=== PATIENT | female | born 1985 | race Caucasian/White ===

== ENCOUNTER 2018-06-19 18:31 | Emergency (ER) | payer MEDICAID, MEDICARE ==
[2018-06-19 18:45] VITALS: BP 135/96
--- NOTE | 2018-06-19 19:45 | UC ---
Ear Complaint HPI - History of Current Complaint Chief Complaint: UCGeneralIllness Stated Complaint: EYE COMPLAINT HEADACHES Time Seen by Provider: 06/19/18 19:21 Hx Obtained From: Patient Hx Last Menstrual Period: [id number] Onset/Duration: Gradual Onset, Lasting Weeks - 2 week, Worse Since - last 2 days Severity Initially: Moderate Severity Currently: Mild Pain Intensity: 3 Pain Scale Used: 0-10 Numeric Aggravating Factors: Other - touch Alleviating Factors: OTC Meds Associated Signs/Symptoms: Positive: Swelling @ - Allergies/Home Medications Allergies/Adverse Reactions: Allergies Allergy/AdvReac Type Severity Reaction Status Date / Time No Known Allergies Allergy Verified 06/19/18 18:46 Home Medications: Home Medications Ibuprofen TAB* [Motrin TAB* 600 MG] 600 mg PO Q8H PRN 06/19/18 [History Confirmed 06/19/18] PMH/Surg Hx/FS Hx/Imm Hx Previously Healthy: Yes Endocrine History: Hypothyroidism - Hashimotos Thyroditis Other Neurological History: Sacroilitis - Surgical History Surgical History: Yes Surgery Procedure, Year, and Place: cone biopsy, cholecystectomy - Family History Family History: Pituitary tumor, Renal cancer, hyprothyrodism - Social History Occupation: Employed Full-time Lives: With Family Alcohol Use: Rare Substance Use Type: Marijuana Substance Use Comment - Amount & Last Used: rarely Smoking Status (MU): Never Smoked Tobacco Review of Systems Constitutional: Negative Skin: Negative Physical Exam Vital Signs: Initial Vital Signs Temp 98.6 F 06/19/18 18:37 Pulse 90 06/19/18 18:37 Resp 16 06/19/18 18:37 BP 135/96 06/19/18 18:37 Pulse Ox 100 06/19/18 18:37 Ear Complaint Course/Dx - Differential Dx/Diagnosis Differential Diagnosis/HQI/PQRI: Barotrauma, Cerumen Impaction, Otitis Externa, Otitis Media, Perforated TM, Pharyngitis, TMJ Syndrome, Trigeminal Nueralgia Provider Diagnoses: 1- Left otitis media. 2- Nausea Discharge - Discharge Plan Condition: Stable Disposition: HOME Prescriptions: Amoxicillin/Clavulanate TAB* [Augmentin TAB 875*] 875 mg PO BID #14 tab Ondansetron ODT TAB* [Zofran 4 MG Odt TAB*] 4 mg PO Q6H PRN #12 tab.odt PRN Reason: Nausea Patient Education Materials: Ear Infection (ED), Acute Nausea and Vomiting (ED) , Low-Sodium Diet (ED) Referrals: [facility] [place]] - 1 Week Russell Bang MD [Medical Doctor] - 3 Days Additional Instructions: 1- Please take the full course of the antibiotic to avoid resistance. Take yogurt w/ probiotics or Culturelle to protect your GI system 2-Please continue taking PO q6-8hrs prn as instructed after meals to alleviate pain and swelling. Increase fluid intake, eat well, rest and avoid strenuous exercise 3- Take Zofran PO as directed if Nausea continues 4-If symptoms do not improve or worsen please return to ENT DR Snyder for further management on ear infections 5- Please F/u w/ with your PCP for further blood work evaluation and treatment on your Brigid thyroditis. 6-Your BP is elevated today. please decrease salt in your diet, monitor BP and if it continues to be elevated please f/u with your PCP for further management - Billing Disposition and Condition Condition: STABLE Disposition: Home
== END 2018-06-19 20:03 | disposition home or self-care (01) ==
LOC: UCEAST 18:31
DX: H66.92 Otitis media, unspecified, left ear (principal); R11.0 Nausea
CPT/HCPCS: 99212; G0463

== ENCOUNTER 2019-05-01 15:07 | Emergency (ER) | payer MEDICARE, MEDICAID ==
[2019-05-01] MEDS ORDERED: Tetan/Diph/Pertus SYR(Tdap)* 0.5 ML SYR(BOOSTRIX) use SYR IM ONE (15:46)
[2019-05-01] MEDS ORDERED: Amoxicillin/Clavulanate TAB* 875 MG PO ONE (15:50)
--- NOTE | 2019-05-01 16:02 | ED ---
Bite Injury/Animal - HPI Summary HPI Summary: Patient is a 34-year-old female who presents emergency department for Bite to right upper extremity that occurred today. Patient states her cat was in a fight with a raccoon and patient picked Up and That her right hand. She also sustained scratches to right mid arm. Patient does not believe she touch the raccoon but is on clear if scratches on arm are from cat or raccoon. Patient notes she is unsure if cat is up-to-date on its vaccinations. She states his last that about 3 years ago. She is unaware of her last tetanus immunization. Symptoms are moderate in severity. Moving right hand makes symptoms worse. Rest makes symptoms better. - History of Current Complaint Chief Complaint: EDAnimalBite Stated Complaint: CAT BITE INJURY PER PT Time Seen by Provider: 05/01/19 15:25 Hx Obtained From: Patient Hx Last Menstrual Period: [id number] Pain Intensity: 7 - Allergies/Home Medications Allergies/Adverse Reactions: Allergies Allergy/AdvReac Type Severity Reaction Status Date / Time No Known Allergies Allergy Verified 03/27/19 20:10 Home Medications: Home Medications ARIPiprazole TAB* [Abilify 2 MG TAB*] 2 mg PO DAILY 05/01/19 [History Confirmed 05/01/19] PMH/Surg Hx/FS Hx/Imm Hx Previously Healthy: Yes Endocrine/Hematology History: Denies: Hx Anticoagulant Therapy Cardiovascular History: Denies: Hx Myocardial Infarction - Surgical History Surgery Procedure, Year, and Place: cone biopsy, cholecystectomy Infectious Disease History: Yes Infectious Disease History: Denies: Traveled Outside the [place] in Last 30 Days - Family History Known Family History: Positive: Non-Contributory Family History: Pituitary tumor, Renal cancer, hyprothyrodism - Social History Occupation: Employed Full-time Lives: With Family Alcohol Use: Rare Substance Use Type: Reports: None Substance Use Comment - Amount & Last Used: rarely Smoking Status (MU): Never Smoked Tobacco Review of Systems Positive: Other - puncture wounds and scratches to right hand and arm. Neurological: Negative Negative: Weakness, Paresthesia, Numbness All Other Systems Reviewed And Are Negative: Yes Physical Exam Triage Information Reviewed: Yes Vital Signs On Initial Exam: Initial Vitals Temp Pulse Resp BP Pulse Ox 99.0 F 99 18 137/92 99 05/01/19 15:12 05/01/19 15:12 05/01/19 15:12 05/01/19 15:12 05/01/19 15:12 Vital Signs Reviewed: Yes Appearance: Positive: Well-Appearing - Pt. sitting on bed in NAD. Skin: Positive: Warm, Dry Head/Face: Positive: Normal Head/Face Inspection Eyes: Positive: Normal, EOMI, OBEY Neck: Positive: Supple Musculoskeletal: Positive: Other - 4 small puncture wounds noted to right hand on the dorsal surface. Mild edema. No erythema or drainage. Able to flex and extend digits with pain. A few superficial abrasions to right mid arm on palmar aspect. Neurological: Positive: Normal, CN Intact II-III Diagnostics - Vital Signs Vital Signs Temp Pulse Resp BP Pulse Ox 05/01/19 15:12 99.0 F 99 18 137/92 99 - Laboratory Lab Statement: Any lab studies that have been ordered have been reviewed, and results considered in the medical decision making process. Bite Injury Course/Dx - Course Course Of Treatment: Patient presenting for bite and potential raccoon scratches. Tetanus was updated. I contacted [facility] department and spoke with Leila. Leila spoke with patient directly. Leila is concerned that scratches on patient's arm for potentially from raccoon and that there is potentially raccoon saliva on When it bit her. She recommends rabies prophylaxis. Ataxia and immunoglobulin was administered. Patient started on Augmentin. Patient will follow up with health department for vaccines on days 3, 7 and 14. Patient to keep wounds clean and dry. Ice and elevate intermittently. Patient was prescribed Ultram should continue for pain as well as ibuprofen. To follow-up with PCP for wound check on Saturday. We 'll return to the ER over the weekend for increased pain, swelling, difficulty moving fingers, fever or if concerned. Patient understands and agrees with plan. - Diagnoses Differential Diagnosis/HQI/PQRI: Positive: Cellulitis, Crush Injury, Fracture, Superficial Infection, Deep Space Infection, Tenosynovitis Provider Diagnosis: Cat bite, Need for post exposure prophylaxis for rabies Discharge - Sign-Out/Discharge Documenting (check all that apply): Patient Departure Patient Received Moderate/Deep Sedation with Procedure: No - Discharge Plan Condition: Good Disposition: HOME Prescriptions: Amoxicillin/Clavulanate TAB* [Augmentin TAB 875*] 875 mg PO BID #20 tab Patient Education Materials: Animal Bite (ED), Rabies Vaccine (ED) Referrals: [facility] Dept [Outside] Leeann Morrison MD [Primary Care Provider] - Additional Instructions: Follow up with the [facility] Department for rabies vaccine injections on days 05/04/18, 05/08/19, and 05/15/19 Keep wound clean and dry Take antibiotic as directed Can continue pain medication as directed Return to ER for increased pain, redness, fever, difficulty moving fingers and wrist - Billing Disposition and Condition Condition: GOOD Disposition: Home
[2019-05-01] MEDS ORDERED: HYDROcodone/ACETAMIN 5-325 MG* 1 TAB PO ONE (16:09)
[2019-05-01] MEDS ORDERED: Rabies Immune Globulin/PF 1ML* 1 ML/300 UNITS VIAL IM ONE (16:11)
[2019-05-01] MEDS ORDERED: Rabies VIRUS VACCINE (Imovax)* 2.5 UNIT/ML 1 ML IM ONE (16:11)
[2019-05-01 18:17] VITALS: BP 112/62
== END 2019-05-01 18:15 | disposition home or self-care (01) ==
LOC: ED 15:07
DX: S61.431A Puncture wound without foreign body of right hand, initial encounter (principal); S50.811A Abrasion of right forearm, initial encounter; W64.XXXA Exposure to other animate mechanical forces, initial encounter; Y92.9 Unspecified place or not applicable; Z20.3 Contact with and (suspected) exposure to rabies; Z23 Encounter for immunization
CPT/HCPCS: 90375; 90471; 90472; 90715; 96372; 99282; A9270-GY

== ENCOUNTER 2020-01-10 13:26 | Emergency (ER) | payer MEDICARE, MEDICAID ==
--- OUTSIDE RECORDS SUMMARY | 2020-01-10 13:53 | XMS REPORT | Continuity of Care Document ---
:1985 External Reference #:[id number] Author Name Leeann Morrison MD (transmitted by agent of provider Jolene Srivastava) Address [address], [place] [address] Care Team Providers Name Role Phone Leeann Morrison MD - Internal Medicine Care Team Information Water/Wastewater Engineer [phone] Matt Costello MD - Hospitalist Care Team Information Water/Wastewater Engineer [phone] Problems Active Problems Provider Date Bipolar disorder Leeann Morrison MD Onset: 09/30/2018 Hypothyroidism Leeann Morrison MD Onset: 09/30/2018 Chronic fatigue syndrome Leeann Morrison MD Onset: 09/30/2018 Sacroiliac joint pain Leeann Morrison MD Onset: 09/30/2018 Cholecystectomy Leeann Morrison MD Onset: 09/30/2018 Social History Type Date Description Comments Sex Unknown ETOH Use Rarely consumes alcohol Tobacco Use Start: Unknown Patient has never smoked Recreational Drug Use Negative For Current Drug User Recreational Drug Use Sporadically uses Marijuana Smoking Status Reviewed: 01/01/20 Patient has never smoked Exercise Type/Frequency Exercises regularly hiking and yoga- 3-5 days per week Allergies, Adverse Reactions, Alerts Description No Known Drug Allergies Medications Active Medications SIG Qnty Indications Ordering Provider Date Tramadol HCL 1 tablet three 90tabs Leeann Morrison MD 11/21/2018 50mg times daily as Tablets needed Viral [place] Formula 60 drops 3x a Unknown day. Abilify 1 by mouth twice Unknown 2mg Tablets daily Medications Administered in Office Medication SIG Qnty Indications Ordering Provider Date Injection Cosyntropin 0.25MG Hiram Smith MD 12/24/2018 Injection Triamcinolone (Kenalog) Josh Dixon MD 04/01/2018 Injection Triamcinolone (Kenalog) Josh Dixon MD 11/18/2017 Injection Immunizations Description No Information Available Vital Signs Date Vital Result Comment 01/01/2020 1:16pm Height 67 inches 5'7" Weight 201.00 lb Heart Rate 88 /min BP Systolic Sitting 116 mmHg BP Diastolic Sitting 77 mmHg Body Temperature 97.2 F O2 % BldC Oximetry 97 % BMI (Body Mass Index) 31.5 kg/m2 08/28/2019 1:11pm Height 67 inches 5'7" Weight 195.00 lb Heart Rate 104 /min BP Systolic Sitting 115 mmHg BP Diastolic Sitting 74 mmHg Body Temperature 97.4 F O2 % BldC Oximetry 96 % BMI (Body Mass Index) 30.5 kg/m2 Results Test Acquired Date Facility Test Result H/L Range Note CBC Auto 12/31/2019 [facility] White Blood 5.3 10^3/uL Normal 3.5-10.[address] [place] [address] [phone] Red Blood Count 4.51 10^6/uL Normal 3.70-4.87 Hemoglobin 13.2 g/dL Normal 12.0-16.0 Hematocrit 38 % Normal 35-47 Mean Corpuscular Volume 84 fL Normal 80-97 Mean Corpuscular Hemoglobin 29 pg Normal 27-31 Mean Corpuscular HGB Conc 35 g/dL Normal 31-36 Red Cell Distribution Width 14 % Normal 10-15 Platelet Count 284 10^3/uL Normal 150-450 Mean Platelet Volume 7.9 fL Normal 7.4-10.4 Abs Neutrophils 3.3 10^3/uL Normal 1.5-7.7 Abs Lymphocytes 1.4 10^3/uL Normal 1.0-4.8 Abs Monocytes 0.4 10^3/uL Normal 0-0.8 Abs Eosinophils 0.1 10^3/uL Normal 0-0.6 Abs Basophils 0.0 10^3/uL Normal 0-0.2 Abs Nucleated RBC 0.0 10^3/uL Granulocyte % 63.4 % Lymphocyte % 27.5 % Monocyte % 7.7 % Eosinophil % 1.1 % Basophil % 0.3 % Nucleated Red Blood Cells % 0.1 Comp Metabolic 12/31/2019 [facility] Sodium 138 mmol/L Normal 135-[address] [place] [address] [phone] Potassium 3.8 mmol/L Normal 3.5-5.0 Chloride 105 mmol/L Normal 101-111 Co2 Carbon Dioxide 26 mmol/L Normal 22-32 Anion Gap 7 mmol/L Normal 2-11 Glucose 98 mg/dL Normal 70-100 Blood Urea Nitrogen 11 mg/dL Normal 6-24 Creatinine 0.64 mg/dL Normal 0.51-0.95 BUN/Creatinine Ratio 17.2 Normal 8-20 Calcium 9.5 mg/dL Normal 8.6-10.3 Total Protein 6.9 g/dL Normal 6.4-8.9 Albumin 4.0 g/dL Normal 3.2-5.2 Globulin 2.9 g/dL Normal 2-4 Albumin/Globulin Ratio 1.4 Normal 1-3 Total Bilirubin 0.30 mg/dL Normal 0.2-1.0 Alkaline Phosphatase 46 U/L Normal 34-104 Alt 19 U/L Normal 7-52 Ast 19 U/L Normal 13-39 Egfr Non- 105.6 >60 Egfr 127.8 >60 1 Laboratory 12/31/2019 [facility] TSH (Thyroid 0.85 Normal 0.34 -5.60 test finding [address] Stim Horm) mcIU/[place] [address] [phone] Laboratory 08/28/2019 [employer] In House Rapid Group Negative test finding A Strep 1 Because ethnic data is not always readily available, this report includes an eGFR for both -Americans and non- Americans. The National Kidney Disease Education Program (NKDEP) does not endorse the use of the MDRD equation for patients that are not between the ages of 18 and 70, are , have extremes of body size, muscle mass, or nutritional status, or are non- or non-. According to the National Kidney Foundation, irrespective of diagnosis, the stage of the disease is based on the level of kidney function: Stage Description GFR(mL/min/1.73 m(2)) 1 Kidney damage with normal or decreased GFR 90 2 Kidney damage with mild decrease in GFR 60-89 3 Moderate decrease in GFR 30-59 4 Severe decrease in GFR 15-29 5 Kidney failure <15 (or dialysis) Procedures Description No Information Available Medical Devices Description No Information Available Encounters Type Date Location Provider Dx Diagnosis Office Visit 08/28/2019 [facility] Internal Leeann Morrison MD J02.9 [facility] G[facility] Chronic pain syndrome Z12.4 Encounter for screening for malignant neoplasm of cervix Assessments Date Code Description Provider 01/01/2020 G89.4 Chronic pain syndrome Leeann Morrison MD 01/01/2020 R53.83 Other fatigue Leeann Morrison MD 08/28/2019 J02.9 Acute pharyngitis, unspecified Leeann Morrison MD 08/28/2019 G89.4 Chronic pain syndrome Leeann Morrison MD 08/28/2019 Z12.4 Encounter for screening for malignant neoplasm of Leeann Morrison MD cervix Plan of Treatment Future Appointment(s):03/01/2020 11:20 am - Leeann Morrison MD at [facility] Leeann Morrison MDG89.4 Chronic pain syndromeReferral: Gregg Garvey DO, Interventional Pain RoclrY64.83 Other fatigue Functional Status Description No Information Available Mental Status Description No Information Available Referrals Refer to Reason for Referral Status Appt Date Gregg Garvey DO Chronic pain ongoing. Tramadol not working Created [address] [place] [id number] [phone]
--- OUTSIDE RECORDS SUMMARY | 2020-01-10 13:53 | XMS REPORT ---
:1985 Author Organization [facility] Care Team Providers Name Role Phone JEREMIAH MADISON Primary Care Physician Unavailable Allergies, Adverse Reactions, Alerts Allergy Code CodeSystem Reaction Severity Criticality Status Start Substance Date nkda Moderate Active Medications Medication Medication Medication Start Stop Route Dose Status Fill Code CodeSystem Date Date Instructions Abilify 181068 RxNorm 2018- oral 2 mg completed for 30 6 08-05 tablet day(s) lithium 877473 RxNorm 2018- oral 300 mg 1 completed 1 capsule carbonate 06-03 08- capsule twice a day twice a for 30 day(s) day aripiprazole 059221 RxNorm 2018- oral 2 mg active for 30 07-10 11-28 tablet day(s) Problems Problem Name Code CodeSystem Alternate Alternate Start End Status Narrative Code CodeSystem Date Date Attention-defi 18576295 SNOMED-CT 2018-11 Active cit 0-09 hyperactivity disorder, combined type Bipolar 58657975 SNOMED-CT Active affective 3-22 disorder, unspecified Bipolar 13636585 SNOMED-CT Active affective 3-22 disorder, unspecified Relevant diagnostic tests/laboratory data Narrative No Information Procedures Procedure Code CodeSystem Target Date of Status Service Device Device Device Name Site Procedure Delivery Code Name UID Location Psychotherap 279125 SNOMED-CT () 2019-04-29 complete Mental y, 45 04 d Health- minutes with [address], [id number] Psychotherap [id number] SNOMED-CT () 2019-05-06 complete Mental y, 45 04 d Health- minutes with [address], [id number] Psychotherap [id number] SNOMED-CT () 2019-05-21 complete Mental y, 45 04 d Health- minutes with [address], [id number] Psychotherap [id number] SNOMED-CT () 2019-06-01 complete Mental y, 45 04 d Health- minutes with [address], [id number] Psychotherap [id number] SNOMED-CT () 2019-02-17 complete Mental y, 45 04 d Health- minutes with [address], [id number] Psychotherap [id number] SNOMED-CT () 2019-02-24 complete Mental y, 45 04 d Health- minutes with [address], [id number] Psychotherap [id number] SNOMED-CT () 2019-09-03 complete Mental y, 45 04 d Health- minutes with [address], [id number] Psychotherap [id number] SNOMED-CT () 2019-09-24 complete Mental y, 45 04 d Health- minutes with [address], [id number] Psychotherap [id number] SNOMED-CT () 2019-11-18 complete Mental y, 45 04 d Health- minutes with [address], [id number] Psychotherap [id number] SNOMED-CT () 2019-03-13 complete Mental y, 45 04 d Health- minutes with [address], [id number] Psychotherap [id number] SNOMED-CT () 2019-04-02 complete Mental y, 45 04 d Health- minutes with [address], [id number] Psychotherap [id number] SNOMED-CT () 2019-04-16 complete Mental y, 45 04 d Health- minutes with [address], [id number] Psychotherap 703201 SNOMED-CT () 2019-06-11 complete Mental y, 45 04 d Health- minutes with [facility] patient [address], [id number] [id number] Psychotherap [id number] SNOMED-CT () 2019-07-29 complete Mental y, 45 04 d Health- minutes with [facility] patient [address], [id number] Psychotherap 415252 SNOMED-CT () 2019-08-19 complete Mental y, 45 04 d Health- minutes with [place] patient [address], [id number] [id number] Office or [id number] SNOMED-CT () 2019-09-24 complete Mental other 7 d Health- outpatient [facility] visit for [address], established [id number] patient, [id number] which requires at least 2 of these 3 roberto components: An expanded problem focused history; An expanded problem focused examination; Medical decision making of low Office or [id number] SNOMED-CT () 2019-08-19 complete Mental other 7 d Health- outpatient [place] visit for [address], established [id number] patient, [phone] which requires at least 2 of these 3 roberto components: An expanded problem focused history; An expanded problem focused examination; Medical decision making of low Office or [id number] SNOMED-CT () 2019-06-26 complete Mental other 6 d Health- outpatient [place] visit for [address], established [id number] patient, [phone] which requires at least 2 of these 3 roberto components: A problem focused history; A problem focused examination; Straightforw marlene medical decision making. Counselin Office or [id number] SNOMED-CT () 2019-06-03 complete Mental other 6 d Health- outpatient [facility] visit for [address], established [id number] patient, [phone] which requires at least 2 of these 3 roberto components: A problem focused history; A problem focused examination; Straightforw marlene medical decision making. Counselin SNOMED-CT () 2019-04-16 complete Mental d Health- [place] [address] [place], [id number] SNOMED-CT () 2019-02-09 complete Mental d Health- [facility] [address] [place], [place], [id number] [phone] Encounters/Encounter Diagnoses Encounter Name Encounter Diagnosis Diagnosis Diagnosis Date of Service Code Code Name CodeSystem Diagnosis Delivery Location Psychotherapy [id number] Bipolar SNOMED-CT 2019-11-18 Behavioral Individual 30 affective Health min disorder, [facility] [address] [place], [place], [id number] Vital Signs No Information Social History Element Description Description Start End Code CodeSystem AdditionalInfo Date Date SexAssignedAtBirth Female F AdministrativeGender 02-02 Hospital Discharge Instructions Reason For Referral Medical Equipment FDA Assessments
--- OUTSIDE RECORDS SUMMARY | 2020-01-10 13:53 | XMS REPORT ---
:1985 Author Organization [facility] Care Team Providers Name Role Phone JEREMIAH MADISON Primary Care Physician Unavailable Allergies, Adverse Reactions, Alerts Allergy Code CodeSystem Reaction Severity Criticality Status Start Substance Date nkda Moderate Active Medications Medication Medication Medication Start Stop Route Dose Status Fill Code CodeSystem Date Date Instructions aripiprazole 432510 RxNorm 2019- oral 2 mg active for 30 8-10 10- tablet day(s) Abilify 367726 RxNorm 2018- oral 2 mg completed for 30 6 08-05 tablet day(s) lithium 888701 RxNorm 2018- oral 300 mg 1 completed 1 capsule carbonate 06-03 08- capsule twice a day twice a for 30 day(s) day Problems Problem Name Code CodeSystem Alternate Alternate Start End Status Narrative Code CodeSystem Date Date Bipolar [id number] SNOMED-CT Active affective 3-22 disorder, unspecified Bipolar [id number] SNOMED-CT Active affective 3-22 disorder, unspecified Attention-defi 25390033 SNOMED-CT 2018-11 Active cit 0-09 hyperactivity disorder, combined type Relevant diagnostic tests/laboratory data Narrative No Information Procedures Procedure Code CodeSystem Target Date of Status Service Device Device Device Name Site Procedure Delivery Code Name UID Location Psychotherap [id number] SNOMED-CT () 2019-04-29 complete Mental y, 45 04 d Health- minutes with [address], [id number] [id number] Psychotherap [id number] SNOMED-CT () 2019-05-06 complete Mental y, 45 04 d Health- minutes with [address], [id number] [id number] Psychotherap [id number] SNOMED-CT () 2019-05-21 complete Mental y, 45 04 d Health- minutes with [address], [id number] [phone] Psychotherap [id number] SNOMED-CT () 2019-06-01 complete Mental y, 45 04 d Health- minutes with [address], [id number] [id number] Psychotherap [id number] SNOMED-CT () 2019-02-17 complete Mental y, 45 04 d Health- minutes with [address], [id number] [id number] Psychotherap [id number] SNOMED-CT () 2019-02-24 complete Mental y, 45 04 d Health- minutes with [address], [id number] [id number] Psychotherap [id number] SNOMED-CT () 2019-09-03 complete Mental y, 45 04 d Health- minutes with [address], [id number] [id number] Psychotherap [id number] SNOMED-CT () 2019-09-24 complete Mental y, 45 04 d Health- minutes with [address], [id number] [id number] Psychotherap [id number] SNOMED-CT () 2019-11-18 complete Mental y, 45 04 d Health- minutes with [address], [id number] [phone] Psychotherap [id number] SNOMED-CT () 2019-12-02 complete Mental y, 45 04 d Health- minutes with [address], [id number] [id number] Psychotherap [id number] SNOMED-CT () 2019-03-13 complete Mental y, 45 04 d Health- minutes with [address], [id number] [id number] Psychotherap [id number] SNOMED-CT () 2019-04-02 complete Mental y, 45 04 d Health- minutes with [address], [id number] [id number] Psychotherap [id number] SNOMED-CT () 2019-04-16 complete Mental y, 45 04 d Health- minutes with [place] patient [address], [id number] [id number] Psychotherap [id number] SNOMED-CT () 2019-06-11 complete Mental y, 45 04 d Health- minutes with [facility] patient [address], [id number] [phone] Psychotherap [id number] SNOMED-CT () 2019-07-29 complete Mental y, 45 04 d Health- minutes with [facility] patient [address], [id number] [phone] Psychotherap [id number] SNOMED-CT () 2019-08-19 complete Mental y, 45 04 d Health- minutes with [facility] patient [address], [id number] [phone] Office or [id number] SNOMED-CT () 2019-09-24 complete Mental other 7 d Health- outpatient [facility] visit for [address], established [id number] patient, [phone] which requires at least 2 of these 3 roberto components: An expanded problem focused history; An expanded problem focused examination; Medical decision making of [place] Office or [id number] SNOMED-CT () 2019-08-19 complete Mental other 7 d Health- outpatient [facility] visit for [address], established [id number] patient, [phone] which requires at least 2 of these 3 roberto components: An expanded problem focused history; An expanded problem focused examination; Medical decision making of low Office or [id number] SNOMED-CT () 2019-06-26 complete Mental other 6 d Health- outpatient [place] visit for [address], established [id number] patient, [phone] which requires at least 2 of these 3 roberto components: A problem focused history; A problem focused examination; Straightforw marlene medical decision making. [place] Office or [id number] SNOMED-CT () 2019-12-02 complete Mental other 6 d Health- outpatient [facility] visit for [address], established [id number] patient, [phone] which requires at least 2 of these 3 roberto components: A problem focused history; A problem focused examination; Straightforw marlene medical decision making. Counsel[place] Office or [id number] SNOMED-CT () 2019-06-03 complete Mental other 6 d Health- outpatient [facility] visit for [address], [facility], of an [facility] established [id number] patient, [phone] which requires at least 2 of these 3 roberto components: A problem focused history; A problem focused examination; Straightforw marlene medical decision making. Miko SNOMED-CT () 2019-04-16 complete Mental d [facility]- [address], [id number] [phone] SNOMED-CT () 2019-02-09 [facility] Mental d [address], [id number] [phone] Encounters/Encounter Diagnoses Encounter Name Encounter Diagnosis Diagnosis Diagnosis Date of Service Code Code Name CodeSystem Diagnosis Delivery Location [facility] - [id number] Bipolar SNOMED-CT 2019-12-02 Behavioral Individual 30 affective Health min disorder, Clinic , , unspecified , Vital Signs No Information Social History Element Description Description Start End Code CodeSystem AdditionalInfo Date Date SexAssignedAtBirth Female F AdministrativeGender 02-02 Hospital Discharge Instructions Reason For Referral Medical Equipment FDA Assessments
--- OUTSIDE RECORDS SUMMARY | 2020-01-10 13:53 | XMS REPORT ---
:1985 Author Organization [facility] Care Team Providers Name Role Phone Jennifer Borjas Primary Care Physician Unavailable Allergies, Adverse Reactions, Alerts Allergy Code CodeSystem Reaction Severity Criticality Status Start Substance Date nkda Moderate Active Medications Medication Medication Medication Start Stop Route Dose Status Fill Code CodeSystem Date Date Instructions lithium [id number] RxNorm 2018- oral 300 mg 1 completed 1 capsule carbonate 06-03- capsule twice a day twice a for 30 day(s) day aripiprazole 043371 RxNorm 2018- oral 2 mg active for 30 8-30 11-28 tablet day(s) Abilify 000063 RxNorm 2018- oral 2 mg completed for 30 6- 08-05 tablet day(s) Problems Problem Name Code CodeSystem Alternate Alternate Start End Status Narrative Code CodeSystem Date Date Bipolar 01937442 SNOMED-CT Active affective 3-22 disorder, unspecified Attention-defi 21554473 SNOMED-CT 2018-11 Active cit 0-09 hyperactivity disorder, combined type Bipolar 33206308 SNOMED-CT Active affective 3-22 disorder, unspecified Relevant diagnostic tests/laboratory data Narrative No Information Procedures Procedure Code CodeSystem Target Date of Status Service Device Device Device Name Site Procedure Delivery Code Name UID Location Psychotherap [id number] SNOMED-CT () 2019-04-29 complete Mental y, 45 04 d Health- minutes with [address], [id number] [id number] Psychotherap [id number] SNOMED-CT () 2019-05-06 complete Mental y, 45 04 d Health- minutes with [address], [id number] [phone] Psychotherap [id number] SNOMED-CT () 2019-05-21 complete Mental y, 45 04 d Health- minutes with [address], [id number] [id number] Psychotherap [id number] SNOMED-CT () 2019-06-01 complete Mental y, 45 04 d Health- minutes with [address], [id number] [phone] Psychotherap [id number] SNOMED-CT () 2019-02-17 complete Mental y, 45 04 d Health- minutes with [address], [id number] [phone] Psychotherap [id number] SNOMED-CT () 2019-02-24 complete Mental y, 45 04 d Health- minutes with [address], [id number] [phone] Psychotherap 077550 SNOMED-CT () 2019-09-03 complete Mental y, 45 04 d Health- minutes with [address], [id number] [phone] Psychotherap [id number] SNOMED-CT () 2019-09-24 complete Mental y, 45 04 d Health- minutes with [address], [id number] [phone] Psychotherap 780792 SNOMED-CT () 2019-03-13 complete Mental y, 45 04 d Health- minutes with [address], [id number] [phone] Psychotherap 751262 SNOMED-CT () 2019-04-02 complete Mental y, 45 04 d Health- minutes with [address], [id number] [id number] Psychotherap [id number] SNOMED-CT () 2019-04-16 complete Mental y, 45 04 d Health- minutes with [address], [id number] [id number] Psychotherap 339348 SNOMED-CT () 2019-06-11 complete Mental y, 45 04 d Health- minutes with [address], [id number] [phone] Psychotherap 639374 SNOMED-CT () 2019-07-29 complete Mental y, 45 04 d Health- minutes with [place] patient [address], [id number] [phone] Psychotherap 017300 SNOMED-CT () 2019-08-19 complete Mental y, 45 04 d Health- minutes with [place] patient [address], [id number] [phone] Office or [id number] SNOMED-CT () 2019-09-24 complete Mental other 7 d Health- outpatient [place] visit for [address], established [id number] patient, [phone] which requires at least 2 of these 3 roberto components: An expanded problem focused history; An expanded problem focused examination; Medical decision making of [facility] Office or [id number] SNOMED-CT () 2019-08-19 complete Mental other 7 d Health- outpatient [place] visit for [address], established [id number] patient, [phone] which requires at least 2 of these 3 roberto components: An expanded problem focused history; An expanded problem focused examination; Medical decision making of [facility] Office or [id number] SNOMED-CT () 2019-06-26 complete Mental other 6 d Health- outpatient [place] visit for [address], established [id number] patient, [phone] which requires at least 2 of these 3 roberto components: A problem focused history; A problem focused examination; Straightforw marlene medical decision making. Counselin Office or [id number] SNOMED-CT () 2019-06-03 complete Mental other 6 d Health- outpatient [place] visit for [address], established [id number] patient, [phone] which requires at least 2 of these 3 roberto components: A problem focused history; A problem focused examination; Straightforw marlene medical decision making. Counselin SNOMED-CT () 2019-04-16 complete Mental d Health- [place], [id number] [phone] SNOMED-CT () 2019-02-09 complete Mental d Health- [place], [id number] [phone] Encounters/Encounter Diagnoses Encounter Name Encounter Diagnosis Diagnosis Diagnosis Date of Service Code Code Name CodeSystem Diagnosis Delivery Location Established [id number] Bipolar SNOMED-CT 2019-09-24 Behavioral patient 15-29 affective Health minutes disorder, Clinic [address] [place], [place], [id number] Vital Signs No Information Social History Element Description Description Start End Code CodeSystem AdditionalInfo Date Date SexAssignedAtBirth Female 0 F AdministrativeGender 02-02 Hospital Discharge Instructions Reason For Referral Medical Equipment FDA Assessments
[2020-01-10 14:38] LABS: ABS Eosinophils 0.1 10^3/ul (0-0.6); ABS Lymphocytes 1.6 10^3/ul (1.0-4.8); ABS Monocytes 0.5 10^3/ul (0-0.8); ABS Neutrophils 4.3 10^3/ul (1.5-7.7); Eosinophil % 1.3 %; Hematocrit 41 % (35-47); Hemoglobin 14.2 g/dL (12.0-16.0); Lymphocyte % 24.4 %; Mean Corpuscular HGB Conc 35 g/dL (31-36); Mean Corpuscular Hemoglobin 29 pg (27-31); Mean Corpuscular Volume 85 fL (80-97); Mean Platelet Volume 7.6 fL (7.4-10.4); Nucleated Red Blood Cells % 0.1; Platelet Count 315 10^3/uL (150-450); Red Blood Count 4.82 10^6 /uL (3.70-4.87); Red Cell Distribution Width 14 % (10-15); White Blood Count 6.4 10^3/uL (3.5-10.8)
[2020-01-10 14:55] LABS: ALT 20 U/L (7-52); AST 19 U/L (13-39); Albumin 4.3 g/dL (3.2-5.2); Albumin/Globulin Ratio 1.2 (1-3); Alkaline Phosphatase 50 U/L (34-104); Anion Gap 7 mmol/L (2-11); BUN/Creatinine Ratio 19.4 (8-20); Blood Urea Nitrogen 12 mg/dL (6-24); CO2 Carbon Dioxide 25 mmol/L (22-32); Calcium 9.6 mg/dL (8.6-10.3); Chloride 105 mmol/L (101-111); EGFR African American 132.5 (>60); EGFR Non-African American 109.5 (>60); Globulin 3.5 g/dL (2-4); Glucose 90 mg/dL (70-100); Potassium 3.9 mmol/L (3.5-5.0); Sodium 137 mmol/L (135-145); Total Protein 7.8 g/dL (6.4-8.9)
[2020-01-10 15:00] LABS: HCG Pregnancy < 0.60 mIU/mL
--- NOTE | 2020-01-10 16:31 | ED ---
HPI Chest Pain - HPI Summary HPI Summary: 34 y/o female presented to [facility] for dull right CP with 10-15 second episodes of sharp pain in the same spot. 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 Episodes have occurred every couple of weeks for 3 months. [place] fatigued today and notes SOB but denies vomiting, leg pain, leg swelling. No hx of cardiac issues or blood clots. Pt notes cardiac hx on father's side. - History of Current Complaint Chief Complaint: EDChestWallPain Time Seen by Provider: 01/10/20 16:16 Hx Obtained From: Patient Hx Last Menstrual Period: [id number] Onset/Duration: Started Weeks Ago, Still Present Timing: Intermittent, Lasting Seconds Current Severity: Moderate Pain Intensity: 4 Pain Scale Used: 0-10 Numeric Chest Pain Location: Right Anterior Character: Dull/Aching, Sharp/Stabbing Aggravating Factor(s): Nothing Alleviating Factor(s): Nothing Associated Signs and Symptoms: Positive: Shortness of Breath, Other: - positive fatigue; negative leg pain. Negative: Vomiting, Edema - Allergy/Home Medications Allergies/Adverse Reactions: Allergies Allergy/AdvReac Type Severity Reaction Status Date / Time No Known Allergies Allergy Verified 01/10/20 13:36 Home Medications: Home Medications Ibuprofen TAB* [Motrin TAB* 600 MG] 600 mg PO Q8H PRN 06/19/18 [History Confirmed 05/01/19] traMADol TAB* [Ultram*] 50 mg PO TID PRN 01/02/19 [History Confirmed 05/01/19] ARIPiprazole TAB* [Abilify 2 MG TAB*] 2 mg PO DAILY 05/01/19 [History Confirmed 05/01/19] Amoxicillin/Clavulanate TAB* [Augmentin TAB 875*] 875 mg PO BID #20 tab [Rx] PMH/Surg Hx/FS Hx/Imm Hx Previously Healthy: Yes Endocrine/Hematology History: Denies: Hx Anticoagulant Therapy Cardiovascular History: Denies: Hx Myocardial Infarction - Surgical History Surgery Procedure, Year, and Place: cone biopsy, cholecystectomy - Immunization History Date of Tetanus Vaccine: Not UTD Infectious Disease History: Yes Infectious Disease History: Denies: Traveled Outside the [place] in Last 30 Days - Family History Known Family History: Positive: Cardiac Disease Family History: Pituitary tumor, Renal cancer, hyprothyrodism - Social History Alcohol Use: Rare Substance Use Type: Reports: None Substance Use Comment - Amount & Last Used: rarely Hx Tobacco Use: No Smoking Status (MU): Never Smoked Tobacco Review of Systems Positive: Fatigue Positive: Shortness Of Breath Negative: Vomiting Negative: Myalgia, Edema All Other Systems Reviewed And Are Negative: Yes Physical Exam - Summary Physical Exam Summary: Slightly anxious Triage Information Reviewed: Yes Vital Signs On Initial Exam: Initial Vitals Temp Pulse Resp BP Pulse Ox 98.3 F 88 20 131/85 110 01/10/20 13:28 01/10/20 13:28 01/10/20 13:28 01/10/20 13:28 01/10/20 13:28 Vital Signs Reviewed: Yes Procedures - Sedation Patient Received Moderate/Deep Sedation with Procedure: No Diagnostics - Vital Signs Vital Signs Temp Pulse Resp BP Pulse Ox 01/10/20 13:28 98.3 F 88 20 131/85 110 - Laboratory Lab Results: Lab Results 01/10/20 01/10/20 Range/Units 14:26 14:26 WBC 6.4 (3.5-10.8) 10^3/uL RBC 4.82 (3.70-4.87) 10^6 /uL Hgb 14.2 (12.0-16.0) g/dL Hct 41 (35-47) % MCV 85 (80-97) fL MCH 29 (27-31) pg MCHC 35 (31-36) g/dL RDW 14 (10-15) % Plt Count 315 (150-450) 10^3/uL MPV 7.6 (7.4-10.4) fL Neut % (Auto) 66.4 % Lymph % (Auto) 24.4 % [place] % (Auto) 7.4 % Eos % (Auto) 1.3 % Baso % (Auto) 0.5 % Absolute Neuts (auto) 4.3 (1.5-7.7) 10^3/ul Absolute Lymphs (auto) 1.6 (1.0-4.8) 10^3/ul Absolute Monos (auto) 0.5 (0-0.8) 10^3/ul Absolute Eos (auto) 0.1 (0-0.6) 10^3/ul Absolute Basos (auto) 0.0 (0-0.2) 10^3/ul Absolute Nucleated RBC 0.0 10^3/ul Nucleated RBC % 0.1 Sodium 137 (135-145) mmol/L Potassium 3.9 (3.5-5.0) mmol/L Chloride 105 (101-111) mmol/L Carbon Dioxide 25 (22-32) mmol/L Anion Gap 7 (2-11) mmol/L BUN 12 (6-24) mg/dL Creatinine 0.62 (0.51-0.95) mg/dL Est GFR ( Amer) 132.5 (>60) Est GFR (Non-Af Amer) 109.5 (>60) BUN/Creatinine Ratio 19.4 (8-20) Glucose 90 (70-100) mg/dL Calcium 9.6 (8.6-10.3) mg/dL Total Bilirubin 0.30 (0.2-1.0) mg/dL AST 19 (13-39) U/L ALT 20 (7-52) U/L Alkaline Phosphatase 50 (34-104) U/L Troponin I 0.00 (<0.03) ng/mL Total Protein 7.8 (6.4-8.9) g/dL Albumin 4.3 (3.2-5.2) g/dL Globulin 3.5 (2-4) g/dL Albumin/Globulin Ratio 1.2 (1-3) Beta HCG, Quant < 0.60 mIU/mL Result Diagrams: 01/10/20 14:26 01/10/20 14:26 Lab Statement: Any lab studies that have been ordered have been reviewed, and results considered in the medical decision making process. - Radiology cxr Radiology Interpretation Completed By: Radiologist Summary of Radiographic Findings: IMPRESSION: No radiographic evidence of acute cardiopulmonary disease. This report was reviewed by the ED physician. - EKG 1346 Cardiac Rate: NL EKG Rhythm: Sinus Rhythm Summary of EKG Findings: EKG at 1346 shows NSR at 82bpm. No signs of ischemia. This EKG was reviewed and interpreted by the ED physician. Chest Pain Course/Dx - Course Course Of Treatment: Patient is here with periodic sharp chest pain on the right side of her chest. Patient is overall well-appearing. Patient has no ischemic changes on EKG. Patient had a chest x-ray which was normal. Patient is overall low risk for DVT surgery d-dimer sent which was negative. Patient had negative troponin. Patient follow up with her primary care doctor - Diagnoses Provider Diagnoses: Right-sided chest pain Discharge ED - Sign-Out/Discharge Documenting (check all that apply): Patient Departure - Discharge Plan Condition: Stable Disposition: HOME Patient Education Materials: Chest Pain (ED) Referrals: Leeann Morrison MD [Primary Care Provider] - Additional Instructions: Please follow up with your primary care doctor in 1-3 days Please take Motrin for pain and use heat on your area of pain Please return immediately if you have severe shortness of breath, severe pain, any other concerning symptoms - Billing Disposition and Condition Condition: STABLE Disposition: Home - Attestation Statements Document Initiated by Scribe: Yes Documenting Scribe: Rodolfo Rose Provider For Whom Ray is Documenting (Include Credential): Chema Jacobson MD Scribe Attestation: Rodolfo Pickering, scribed for Chema Jacobson MD on 01/10/20 at 1826. Scribe Documentation Reviewed: Yes Provider Attestation: The documentation as recorded by the Rodolfo hall accurately reflects the service I personally performed and the decisions made by Chema price MD Status of Scribe Document: Viewed
[2020-01-10 17:02] VITALS: BP 140/89
== END 2020-01-10 17:02 | disposition home or self-care (01) ==
LOC: ED 13:26
DX: R07.89 Other chest pain (principal); F41.9 Anxiety disorder, unspecified; R06.02 Shortness of breath; R53.83 Other fatigue
CPT/HCPCS: 36415; 71046; 80053; 84484; 84702; 85025; 85379; 93005; 99282